=== PATIENT | male | born 1995 | race Hispanic/Latino ===

== ENCOUNTER 2017-03-19 17:55 | Emergency (ER) | payer MEDICAID, OTHER ==
[~2017-03-19] VITALS: Ht 175.3 cm; Wt 68.2 kg
[2017-03-19 18:05] VITALS: BP 130/90; PULSE 66; RESP 20; O2SAT 99
--- NOTE | 2017-03-19 18:14 | ED.REPORT ---
HPI-General Illness Date of Service March 19, 2017 ED Provider: Timothy Velasquez MD Pt is a 21 y/o male presenting to the ED via EMS due to alcohol intoxication. The patient was [place] to be [place] and confused [place] and was brought here. He reports a lot of stress recently regarding personal debts. He denies any falls, head injuries, suicidal ideation, homicidal ideation, change in LOC, or drug use. He admits that he had too much to drink and states that he feels embarrassed. Nursing Notes Stated Complaint: INTOXICATED Chief Complaint: Substance Abuse Nursing Notes Reviewed: Yes Allergies: Coded Allergies: No Known Allergies (Unverified , 03/19/17) General Time Seen by MD: 18:12 Chief Complaint Other (intox) Hx Obtained From: Patient Onset Occurred: 1 - 4 hours ago Symptom Duration: Since onset Severity: Current: No pain currently Severity: Maximum: No pain Similar Sx Previous: No Past Medical History Past Medical History Denies Past Surgical History Denies Smoking History Unknown if Ever Smoker Social History Alcohol use today, unknown prior Ambulatory Status Independent Review of Systems Full Review of Systems Neurologic: Denies: Change LOC, Headache, Syncope Complete sys rev & neg: except as marked. Physical Exam Vital Signs Vital Signs Date Time Temp Pulse Resp B/P Pulse Ox O2 Delivery O2 Flow Rate FiO2 03/19/17 20:31 36.3 76 18 140/91 100 Room Air 03/19/17 18:05 36.9 66 20 130/90 99 Room Air Initial VS: Reviewed, Vital signs normal Head / Eyes: Atraumatic, Normocephalic, PERRL ENT: Mucous membranes moist, Conjunctiva normal, No scleral icterus Neck: Supple, Full range of motion Respiratory: Breath sounds normal, Clear to auscultation, No respiratory distress Cardiovascular: Regular rate & rhythm, Heart sounds normal, Intact distal pulses Abdomen / GI: Soft, Non-tender Extremities: Vascular intact, Neuro intact, No swelling, No tenderness Skin: Warm, Dry, No cyanosis Neurologic: Alert, Oriented, Nonfocal Psychiatric: Mood/affect normal, Behavior normal, Normal thought content General/Constitutional: Awake, Alert, No acute distress, Cooperative, Not toxic appearing Normal gait after sobering in ED Re-Eval/Medical Decision Med Decision/Clinical Course Pt is a 21 y/o male presenting to the ED via EMS due to alcohol intoxication. The patient was found to be [place] and confused [place] and was brought here. He reports a lot of stress recently regarding personal debts. He denies any falls, head injuries, suicidal ideation, homicidal ideation, change in LOC, or drug use. He admits that he had too much to drink and states that he feels embarrassed. Here in the emergency department the patient is afebrile with stable vital signs and in no apparent distress. He is linear/organized and able to answer questions appropriately. Examination Reveals No evidence of trauma. Breathalyzer reveals alcohol level of 0.17. Patient was observed here in the emergency department during which time he demonstrated clinical sobriety was able to walk in a straight line. We contacted the patient's mother who came to retrieve him and take him home. Patient declines alcohol abuse resources and states that he made a mistake. He denies any suicidal ideation. Prior to discharge follow-up and return precautions were reviewed in detail with the patient who verbalized understanding and agreement with the plan. The patient was discharged in stable condition. Time of Eval: 20:27 Re-Evaluation/Progress Note: Passed road test, will be discharged. Informed pt of plan for treatment. Pt understands and agrees with plan for treatment. F/U instructions and RTER warnings given. All questions addressed. Counseled Regarding: Diagnosis, Need for follow-up, When/why to return to ED Discharge & Departure Primary Impression: Alcohol intoxication Complication of substance-induced condition: uncomplicated Qualified Code: F10.120 - Alcohol abuse with intoxication, uncomplicated Additional Impression: Mental status alteration Altered mental status type: unspecified Qualified Code: R41.82 - Altered mental status, unspecified Disposition: Home Discharge Condition All VS Reviewed: Yes Condition: Stable Patient Instructions: Alcohol Intoxication (GEN) Additional Instructions: You were seen today for alcohol intoxication. I recommend you not overuse alcohol. Return to the emergency department if you experience any thoughts of harming yourself or others, or experience a head injury, or for other concerning symptoms. Considering discussing stress with a counselor. Referrals: Stefanie Huff MD (PCP) Scribe Attestation Portions of this note were transcribed by Koffi George. I, Dr. Velasquez personally performed the history, physical exam and medical decision-making; I reviewed and confirmed the accuracy of the information in the transcribed note. Signed by Lexa Sol, 03/19/171829 copies to: Stefanie Huff MD, Beck O MD March 19, 2017 18:14 KOFFI GEORGE March 19, 2017 18:15
[2017-03-19] MEDS ORDERED: 0.9% Sodium Chloride 1,000 ML IV ONE (18:15)
[2017-03-19 20:31] VITALS: BP 140/91; PULSE 76; RESP 18; O2SAT 100
== END 2017-03-19 21:36 | disposition home or self-care (01) ==
LOC: EDBD 17:55 → SED 17:55 → EDUNIT# 17:55 → SED 21:36
DX: F10.120 Alcohol abuse with intoxication, uncomplicated (principal); R41.82 Altered mental status, unspecified